=== PATIENT | male | born 1970 | race Caucasian/White ===

== ENCOUNTER 2018-05-18 05:44 | Emergency (ER) | payer MEDICAID ==
[2018-05-18] MEDS: HYDROCODONE/APAP (5/325) TAB PO (06:42)
[2018-05-18] MEDS: ONDANSETRON (ODT) 4 MG TAB ODT (06:42)
[2018-05-18 06:54] LABS: ADD MAN DIFF? NO
[2018-05-18 07:00] LABS: ADD UMIC NO; UR ASCORBIC ACID NEGATIVE (NEGATIVE); UR BILIRUBIN (Dip) NEGATIVE (NEGATIVE); UR BLOOD (Dip) NEGATIVE (NEGATIVE); UR CLARITY CLEAR (CLEAR); UR COLOR STRAW (YELLOW); UR GLUCOSE (Dip) NEGATIVE (NEGATIVE); UR KETONES (Dip) NEGATIVE (NEGATIVE); UR LEUKOCYTE ESTERASE (Dip) NEGATIVE Leu/ul (NEGATIVE); UR NITRITE (Dip) NEGATIVE (NEGATIVE); UR SPECIFIC GRAVITY (Dip) 1.009 (1.003-1.030); UR TOTAL PROTEIN (Dip) NEGATIVE (NEGATIVE); UR UROBILINOGEN (Dip) NEGATIVE (NEGATIVE)
[2018-05-18 07:04] LABS: WHITE BLOOD COUNT 8.6 10^3/ul (4.8-10.8)
[2018-05-18 07:04] LABS: BASOPHILS % 0.3 % (0.0-2.0); EOSINOPHILS # 0.2 10^3/ul (0.0-0.5); EOSINOPHILS % 2.1 % (0.0-7.0); HEMATOCRIT 43.5 % (42.0-52.0); LYMPHOCYTES # 2.5 10^3/ul (0.8-2.9); LYMPHOCYTES % 29.4 % (15.0-51.0); MEAN CORPUSCULAR HEMOGLOBIN 27.7 pg (29.0-33.0); MEAN CORPUSCULAR HGB CONC 32.2 g/dl (32.0-37.0); MEAN PLATELET VOLUME 9.9 fl (7.4-10.4); MONOCYTE # 0.7 10^3/ul (0.3-0.9); MONOCYTES % 7.6 % (0.0-11.0); NEUTROPHIL # 5.2 10^3/ul (1.6-7.5); NEUTROPHILS % 60.3 % (39.0-77.0); PLATELET COUNT 322 10^3/UL (140-415); RED BLOOD COUNT 5.06 10^6/ul (4.70-6.10); RED CELL DISTRIBUTION WIDTH 13.1 % (11.5-14.5)
[2018-05-18 07:16] LABS: ALANINE AMINOTRANSFERASE 39 IU/L (13-69); ALBUMIN 4.3 g/dl (3.3-4.9); ALBUMIN/GLOBULIN RATIO 1.16; ALKALINE PHOSPHATASE 120 IU/L (42-121); ANION GAP 10 (5-13); ASPARTATE AMINO TRANSFERASE 33 IU/L (15-46); BILIRUBIN,INDIRECT 0.2 mg/dl (0-1.1); BILIRUBIN,TOTAL 0.2 mg/dl (0.2-1.3); BLOOD UREA NITROGEN 10 mg/dl (7-20); CALCIUM 9.1 mg/dl (8.4-10.2); CARBON DIOXIDE 29 mmol/L (21-31); CHLORIDE 105 mmol/L (97-110); CREATININE 0.82 mg/dl (0.61-1.24); Estimated GFR > 60 mL/min (>60); GLUCOSE 127 mg/dl (70-220); LIPASE 63 U/L (23-300); POTASSIUM 4.2 mmol/L (3.5-5.1); SODIUM 144 mmol/L (135-144)
== END 2018-05-18 08:26 | disposition home or self-care (01) ==
LOC: FTE 05:44
DX: R10.13 Epigastric pain (principal)
CPT/HCPCS: 36415; 71045; 76705; 80053; 81003; 83690; 85025; 99285-25

== ENCOUNTER 2018-05-24 13:58 | Inpatient (IN) | payer MEDICAID ==
[2018-05-24] MEDS: morphine 4 MG/ML VIAL IV (15:05)
[2018-05-24] MEDS: ONDANSETRON 4 MG INJ IV (15:05)
[2018-05-24] MEDS: SOD CHLORIDE 0.9% 1,000 ML IV (15:05)
[2018-05-24 15:12] LABS: ADD MAN DIFF? NO
[2018-05-24 15:19] LABS: WHITE BLOOD COUNT 7.2 10^3/ul (4.8-10.8)
[2018-05-24 15:19] LABS: BASOPHILS % 0.4 % (0.0-2.0); EOSINOPHILS # 0.1 10^3/ul (0.0-0.5); EOSINOPHILS % 1.7 % (0.0-7.0); HEMATOCRIT 44.8 % (42.0-52.0); HEMOGLOBIN 14.5 g/dl (14.0-18.0); LYMPHOCYTES # 2.2 10^3/ul (0.8-2.9); LYMPHOCYTES % 30.1 % (15.0-51.0); MEAN CORPUSCULAR HEMOGLOBIN 27.8 pg (29.0-33.0); MEAN CORPUSCULAR HGB CONC 32.4 g/dl (32.0-37.0); MEAN PLATELET VOLUME 9.7 fl (7.4-10.4); MONOCYTE # 0.6 10^3/ul (0.3-0.9); MONOCYTES % 7.9 % (0.0-11.0); NEUTROPHIL # 4.3 10^3/ul (1.6-7.5); NEUTROPHILS % 59.5 % (39.0-77.0); PLATELET COUNT 374 10^3/UL (140-415); RED BLOOD COUNT 5.21 10^6/ul (4.70-6.10); RED CELL DISTRIBUTION WIDTH 13.2 % (11.5-14.5)
[2018-05-24 15:34] LABS: PROTIME 12.3 Sec (11.9-14.9)
[2018-05-24 15:35] LABS: PARTIAL THROMBOPLASTIN TIME 33.2 Sec (23.0-35.0)
[2018-05-24 15:37] LABS: ALANINE AMINOTRANSFERASE 931 IU/L (13-69); ALBUMIN 4.4 g/dl (3.3-4.9); ALKALINE PHOSPHATASE 224 IU/L (42-121); ANION GAP 8 (5-13); BILIRUBIN,INDIRECT 0.5 mg/dl (0-1.1); BILIRUBIN,TOTAL 1.1 mg/dl (0.2-1.3); BLOOD UREA NITROGEN 5 mg/dl (7-20); CALCIUM 9.2 mg/dl (8.4-10.2); CARBON DIOXIDE 32 mmol/L (21-31); CHLORIDE 104 mmol/L (97-110); CREATININE 0.88 mg/dl (0.61-1.24); Estimated GFR > 60 mL/min (>60); GLUCOSE 132 mg/dl (70-220); LIPASE 93 U/L (23-300); POTASSIUM 3.9 mmol/L (3.5-5.1); SODIUM 144 mmol/L (135-144); TOTAL PROTEIN 8.4 g/dl (6.1-8.1)
[2018-05-24 15:47] LABS: ASPARTATE AMINO TRANSFERASE 1359 IU/L (15-46)
[2018-05-24 15:48] LABS: TROPONIN-I < 0.012 ng/ml (0.000-0.120)
[2018-05-24 15:53] LABS: ADD UMIC NO; UR ASCORBIC ACID 20 mg/dL (NEGATIVE); UR BILIRUBIN (Dip) NEGATIVE (NEGATIVE); UR BLOOD (Dip) NEGATIVE (NEGATIVE); UR CLARITY SLIGHTLY CLOUDY (CLEAR); UR COLOR AMBER (YELLOW); UR GLUCOSE (Dip) NEGATIVE (NEGATIVE); UR KETONES (Dip) NEGATIVE (NEGATIVE); UR LEUKOCYTE ESTERASE (Dip) NEGATIVE Leu/ul (NEGATIVE); UR NITRITE (Dip) NEGATIVE (NEGATIVE); UR RBC 1 /HPF (0-5); UR SPECIFIC GRAVITY (Dip) 1.012 (1.003-1.030); UR TOTAL PROTEIN (Dip) NEGATIVE (NEGATIVE); UR UROBILINOGEN (Dip) NEGATIVE (NEGATIVE); UR WBC 0 /HPF (0-5)
[2018-05-24] MEDS ORDERED: ACETAMINOPHEN 325 MG TAB PO (16:30)
[2018-05-24] MEDS ORDERED: ONDANSETRON 4 MG INJ IV (16:30)
[2018-05-24] MEDS ORDERED: NACL 0.9% 3 ML SYG IV (17:00)
[2018-05-24] MEDS: PIPER-TAZO 3.375 GM IV (PMX) 100 ML IVPB (17:36)
[2018-05-24] MEDS: morphine 2 MG INJ IV (17:37)
[2018-05-24] MEDS: AL HYDROX/MG HYDROX/SIMETH 30 ML CUP PO (19:34)
[2018-05-25] MEDS: PIPER-TAZO 3.375 GM IV (PMX) 100 ML IVPB ×3 (02:13→19:00)
[2018-05-25] MEDS: morphine 2 MG INJ IV (02:15)
[2018-05-25] MEDS: ONDANSETRON 4 MG INJ IV (02:15)
[2018-05-25 06:12] LABS: ADD MAN DIFF? NO; HAAIG REFLEX REFLEX FILED
[2018-05-25 06:37] LABS: BASOPHILS % 0.5 % (0.0-2.0); EOSINOPHILS # 0.1 10^3/ul (0.0-0.5); EOSINOPHILS % 2.1 % (0.0-7.0); HEMATOCRIT 44.3 % (42.0-52.0); HEMOGLOBIN 14.4 g/dl (14.0-18.0); LYMPHOCYTES # 1.7 10^3/ul (0.8-2.9); LYMPHOCYTES % 27.1 % (15.0-51.0); MEAN CORPUSCULAR HEMOGLOBIN 28.1 pg (29.0-33.0); MEAN CORPUSCULAR HGB CONC 32.5 g/dl (32.0-37.0); MEAN CORPUSCULAR VOLUME 86.5 fl (82.0-101.0); MEAN PLATELET VOLUME 10.4 fl (7.4-10.4); MONOCYTE # 0.4 10^3/ul (0.3-0.9); MONOCYTES % 6.6 % (0.0-11.0); NEUTROPHIL # 3.9 10^3/ul (1.6-7.5); NEUTROPHILS % 63.4 % (39.0-77.0); PLATELET COUNT 355 10^3/UL (140-415); RED BLOOD COUNT 5.12 10^6/ul (4.70-6.10); RED CELL DISTRIBUTION WIDTH 13.6 % (11.5-14.5)
[2018-05-25 06:37] LABS: WHITE BLOOD COUNT 6.2 10^3/ul (4.8-10.8)
[2018-05-25 06:45] LABS: ALBUMIN/GLOBULIN RATIO 1.11; ALKALINE PHOSPHATASE 240 IU/L (42-121); ANION GAP 11 (5-13); BILIRUBIN,TOTAL 2.9 mg/dl (0.2-1.3); BLOOD UREA NITROGEN 6 mg/dl (7-20); CALCIUM 8.8 mg/dl (8.4-10.2); CARBON DIOXIDE 31 mmol/L (21-31); CHLORIDE 103 mmol/L (97-110); CREATININE 0.84 mg/dl (0.61-1.24); Estimated GFR > 60 mL/min (>60); GLUCOSE 136 mg/dl (70-220); SODIUM 145 mmol/L (135-144); TOTAL PROTEIN 7.6 g/dl (6.1-8.1)
[2018-05-25] MEDS ORDERED: LIDOCAINE 2% (SDV) 5 ML INJ (07:00)
[2018-05-25] MEDS ORDERED: ROCURONIUM 50 MG INJ ×2 (07:00→19:02)
[2018-05-25 07:03] LABS: ALANINE AMINOTRANSFERASE 1119 IU/L (13-69); ASPARTATE AMINO TRANSFERASE 1151 IU/L (15-46)
[2018-05-25 07:15] LABS: HEPATITIS B SURFACE ANTIGEN NEGATIVE (NEGATIVE)
[2018-05-25 07:26] LABS: HEMOGLOBIN A1C 6.6 % (0-5.9)
[2018-05-25 07:34] LABS: HEPATITIS B CORE ANTIBODY NEGATIVE (NEGATIVE); HEPATITIS C VIRAL ANTIBODY NEGATIVE (NEGATIVE)
[2018-05-25] MEDS ORDERED: INDOMETHACIN 50 MG SUPP PR (16:30)
[2018-05-25] MEDS ORDERED: IOHEXOL 300MG/ML 30 ML BTL (16:37)
[2018-05-25] MEDS ORDERED: FENTAnyl 50 MCG/ML VIAL (18:49)
[2018-05-25] MEDS ORDERED: FENTAnyl 50 MCG/ML VIAL IV (19:00)
[2018-05-25] MEDS ORDERED: PROPOFOL 20 ML (19:02)
[2018-05-25] MEDS ORDERED: SUGAMMADEX SODIUM 200 MG/2 ML VIAL IV (19:02)
[2018-05-25] MEDS ORDERED: SUCCINYLCHOLINE CHLORIDE 100 MG/5 ML SYG IV (19:02)
[2018-05-25] MEDS: FENTAnyl 50 MCG/ML VIAL IV (19:39)
[2018-05-26] MEDS: morphine 2 MG INJ IV ×5 (00:23→20:29)
[2018-05-26] MEDS: ONDANSETRON 4 MG INJ IV ×2 (00:23→20:36)
[2018-05-26] MEDS: PIPER-TAZO 3.375 GM IV (PMX) 100 ML IVPB ×3 (02:23→18:01)
[2018-05-26 06:50] LABS: ALANINE AMINOTRANSFERASE 997 IU/L (13-69); ALBUMIN/GLOBULIN RATIO 1.05; ALKALINE PHOSPHATASE 251 IU/L (42-121); ANION GAP 10 (5-13); ASPARTATE AMINO TRANSFERASE 683 IU/L (15-46); BILIRUBIN,INDIRECT 0.8 mg/dl (0-1.1); BLOOD UREA NITROGEN 6 mg/dl (7-20); CALCIUM 8.8 mg/dl (8.4-10.2); CARBON DIOXIDE 29 mmol/L (21-31); CHLORIDE 105 mmol/L (97-110); CREATININE 0.81 mg/dl (0.61-1.24); Estimated GFR > 60 mL/min (>60); GLUCOSE 131 mg/dl (70-220); POTASSIUM 3.8 mmol/L (3.5-5.1); SODIUM 144 mmol/L (135-144); TOTAL PROTEIN 7.8 g/dl (6.1-8.1)
[2018-05-26] MEDS: HYDROCODONE/APAP (5/325) TAB PO ×3 (11:58→22:01)
[2018-05-27] MEDS: morphine 2 MG INJ IV (00:41)
[2018-05-27] MEDS: ONDANSETRON 4 MG INJ IV (00:41)
[2018-05-27] MEDS: HYDROCODONE/APAP (5/325) TAB PO ×4 (02:20→17:25)
[2018-05-27] MEDS: PIPER-TAZO 3.375 GM IV (PMX) 100 ML IVPB ×3 (02:20→17:25)
[2018-05-27 06:42] LABS: ALANINE AMINOTRANSFERASE 824 IU/L (13-69); ALBUMIN 4.1 g/dl (3.3-4.9); ALKALINE PHOSPHATASE 267 IU/L (42-121); ANION GAP 10 (5-13); ASPARTATE AMINO TRANSFERASE 392 IU/L (15-46); BILIRUBIN,INDIRECT 0.9 mg/dl (0-1.1); BILIRUBIN,TOTAL 1.4 mg/dl (0.2-1.3); BLOOD UREA NITROGEN 5 mg/dl (7-20); CALCIUM 9.1 mg/dl (8.4-10.2); CARBON DIOXIDE 30 mmol/L (21-31); CHLORIDE 101 mmol/L (97-110); CREATININE 0.81 mg/dl (0.61-1.24); Estimated GFR > 60 mL/min (>60); GLUCOSE 135 mg/dl (70-220); SODIUM 141 mmol/L (135-144); TOTAL PROTEIN 8.2 g/dl (6.1-8.1)
[2018-05-27] MEDS: MAGNESIUM HYDROXIDE 30ML CUP PO (22:01)
[2018-05-28] MEDS: HYDROCODONE/APAP (5/325) TAB PO ×2 (02:00→10:17)
[2018-05-28] MEDS: PIPER-TAZO 3.375 GM IV (PMX) 100 ML IVPB ×2 (02:03→10:20)
[2018-05-28 06:34] LABS: ALANINE AMINOTRANSFERASE 600 IU/L (13-69); ALBUMIN 4.1 g/dl (3.3-4.9); ALBUMIN/GLOBULIN RATIO 0.97; ALKALINE PHOSPHATASE 248 IU/L (42-121); ANION GAP 10 (5-13); ASPARTATE AMINO TRANSFERASE 209 IU/L (15-46); BILIRUBIN,INDIRECT 0.9 mg/dl (0-1.1); BILIRUBIN,TOTAL 0.9 mg/dl (0.2-1.3); BLOOD UREA NITROGEN 6 mg/dl (7-20); CALCIUM 9.3 mg/dl (8.4-10.2); CARBON DIOXIDE 32 mmol/L (21-31); CHLORIDE 99 mmol/L (97-110); CREATININE 0.73 mg/dl (0.61-1.24); Estimated GFR > 60 mL/min (>60); GLUCOSE 129 mg/dl (70-220); POTASSIUM 3.6 mmol/L (3.5-5.1); SODIUM 141 mmol/L (135-144); TOTAL PROTEIN 8.3 g/dl (6.1-8.1)
[2018-05-28] MEDS ORDERED: DEXTROSE 50% 50 ML SYRINGE IV ×2 (12:00)
[2018-05-28] MEDS ORDERED: GLUCOSE GEL 15 GRAM TUBE PO ×2 (12:00)
[2018-05-28] MEDS: INSULIN ASPART [NOVOLOG] 3 ML PEN SC (12:00)
[2018-05-28] MEDS ORDERED: GLUCOSE GEL 15 GRAM TUBE BUCCAL (12:00)
[2018-05-28] MEDS ORDERED: GLUCAGON 1 MG INJ IM (12:00)
== END 2018-05-28 16:35 | disposition home or self-care (01) | DRG 446 ==
LOC: E/R 13:58 → 2NE 16:08
PROC: 0F798DZ Dilation of Common Bile Duct with Intraluminal Device, Via Natural or Artificial Opening Endoscopic (ICD-10-PCS; principal; 2018-05-25 17:30)
PROC: 0FC98ZZ Extirpation of Matter from Common Bile Duct, Via Natural or Artificial Opening Endoscopic (ICD-10-PCS; 2018-05-25 17:30)
DX: K80.60 Calculus of gallbladder and bile duct with cholecystitis, unspecified, without obstruction (principal); E66.9 Obesity, unspecified; Z68.35 Body mass index [BMI] 35.0-35.9, adult; K42.9 Umbilical hernia without obstruction or gangrene; I10 Essential (primary) hypertension; E78.5 Hyperlipidemia, unspecified; M19.90 Unspecified osteoarthritis, unspecified site
CPT/HCPCS: 36415; 74176; 74330; 80053; 81001; 81003; 82962; 83036; 83690; 84484; 85025; 85610; 85730; 86704; 86709; 86803; 87340; 93005; 96374; 96375; 99285-25